=== PATIENT | female | born 1975 | race African-American/Black ===

== ENCOUNTER 2016-08-29 07:39 | Day surgery (SDC) | payer OTHER ==
[~2016-08-29 07:39] MED LIST: DIPHENHYDRAMINE HCL 50 MG/ML VIAL ONE; EPINEPHRINE INJ 1 MG/10 ML DISP.SYRIN ONE; FENTANYL CITRATE INJ/PF 100 MCG/2 ML AMPUL ONE; FLUMAZENIL INJ 0.5 MG/5 ML VIAL IV ONE; GLUCAGON,HUMAN RECOMB 1 MG INJ ONE; MIDAZOLAM 2 MG/2 ML INJ ONE; NALOXONE HCL INJ/PF 0.4 MG/1 ML SDV ONE; ONDANSETRON HCL INJ/PF 4 MG/2 ML SDV ONE
[2016-08-29] MEDS ORDERED: MIDAZOLAM 2 MG/2 ML INJ IV ONE ×2 (08:16→08:22)
[2016-08-29] MEDS ORDERED: FENTANYL CITRATE INJ/PF 100 MCG/2 ML AMPUL IV ONE (08:19)
--- NOTE | 2016-08-29 16:36 | OPERATIVE REPORT E ---
Operative Report NAME: PRADEEP BYRD : 1975 AGE: 41Y DATE OF SURGERY: 08/29/2016 ROOM: INDICATIONS FOR PROCEDURE: Dysphagia. POSTPROCEDURE DIAGNOSES: 1. Schatzki ring that is broken. 2. Gastritis, status post biopsy to rule out Helicobacter pylori. PROCEDURE: Upper endoscopy. SURGEON: WILLIE STEELE M.D. ANESTHESIA: Preprocedure medications and anesthesia include 4 mg of Versed and 75 mcg of Fentanyl. Conscious sedation monitoring time: 30 minutes. BLOOD LOSS: None. COMPLICATIONS: None. The patient tolerated the procedure well. DESCRIPTION OF PROCEDURE: Risks, benefits, and alternatives of the procedure, including risk of bleeding or perforation requiring surgery, are explained to the patient in detail and informed consent is obtained. The patient was placed in a left lateral decubitus position. An Olympus videoscope was inserted into the patient's mouth and hypopharynx. The esophagus was identified, intubated and insufflated. The scope was then gradually advanced downwards towards the distal EG junction. The Z line appears to be normal but there is a Schatzki ring. The scope was then pushed down into the stomach cavity and lesser curvature and followed down to the antrum. Gastritis was noted. The first and second portions of the duodenum were otherwise normal. I then brought the scope back up into the antral cavity and retroflexed. The cardia, fundus, and incisura angularis were noted. The scope was unretroflexed. The rest of the air was suctioned out of the patient's stomach and the procedure then completed. The patient tolerated the procedure well. IMPRESSION: 1. Schatzki ring which is broken. Hopefully this will relieve her symptoms of dysphagia. 2. Gastritis, status post biopsy to rule out Helicobacter pylori. PLAN: We will await biopsies and make further recommendations as they become necessary. The patient is discharged in good condition. DISCHARGE DIET: Regular. DISCHARGE ACTIVITY: Regular. FOLLOWUP: The patient does have a 2- to 3-week followup to discuss findings. We will wait on biopsies. The patient is instructed to call the office or proceed to the emergency room should there be any further problems or questions. DICTATING PHYSICIAN: WILLIE STEELE M.D. [id number] Y#: [id number] ID: [id number] JOB#: [id number] ACCT: [id number] cc:WILLIE STEELE M.D. >
[2016-08-30 14:23] VITALS: BP 112/67
== END 2016-08-29 09:45 | disposition home or self-care (01) ==
LOC: END 07:39
PROVIDERS: ATTEND Internal Medicine Gastroenterology
PROC: 0DB68ZX Excision of Stomach, Via Natural or Artificial Opening Endoscopic, Diagnostic (ICD-10-PCS; principal; 2016-08-29 08:00)
DX: K22.2 Esophageal obstruction (principal); K29.50 Unspecified chronic gastritis without bleeding; Z79.899 Other long term (current) drug therapy
CPT/HCPCS: 43239; 88342 ×2; 88305 ×2; J2250; J0171; J3010; J1200; J1610; J2310; J2405; J3490